=== PATIENT | female | born 1945 | race Caucasian/White ===

== ENCOUNTER 2018-09-05 21:11 | Emergency (ER) | payer OTHER ==
[~2018-09-05] VITALS: Ht 165.1 cm; Wt 68.0 kg
[2018-09-05 21:20] VITALS: BP_SYST 91
--- NOTE | 2018-09-05 21:41 | NUR ---
Patient to ER bed 06 to gown for evaluation. Side rails up.
--- NOTE | 2018-09-05 21:42 | NUR ---
ER Dr. Oseguera at bedside examining patient.
[2018-09-05] MEDS ORDERED: NACL 0.9% 1,000 ML IV ONE (21:43)
--- NOTE | 2018-09-05 21:43 | NUR ---
Pts bp is 85/37. ER MD Dr. Oseguera made aware. Started on IVF bolus.
--- NOTE | 2018-09-05 21:50 | NUR ---
Pt came into the ED by EMS for hx of of breast cancer after she lost consciousness while going to the bathroom before she came into the ED. [facility] because [facility] saw that she lost her balance. Pt is a & O x 4 and denies any other complaints. States she feels fine. She recalls that she felt dizzy when she lost consciousness. Her last treatment of chemo was on 08/29. Denies n/v/d or fever. No other complaints/ injuries noted. Will cont. to monitor.
--- NOTE | 2018-09-05 22:00 | NUR ---
Pt resting comfortably in bed.
[2018-09-05 22:23] LABS: HEMATOCRIT 31.8 % (36-48); HEMOGLOBIN 10.1 g/dL (12.0-16.0); MEAN CORPUSCULAR HEMOGLOBIN 28 pg (27-31); MEAN CORPUSCULAR HGB CONC 32 % (32-36); MEAN CORPUSCULAR VOLUME 87 fL (79.0-98.0); PLATELET COUNT (AUTO) 105 K/uL (130-430); RED BLOOD CELL COUNT(AUTO) 3.67 MIL/uL (4.2-6.2); RED CELL DISTRIBUTION WIDTH 14.9 % (9.0-15.0)
[2018-09-05 22:34] LABS: ANION GAP 10 (5-15); CALCIUM 7.4 mg/dL (8.4-11.0); CHLORIDE 103 mmol/L (98-107); CREATININE 1.44 mg/dL (0.55-1.30); GLUCOSE 124 mg/dL (70-99); POTASSIUM 4.1 mmol/L (3.5-5.1); SODIUM SERUM 137 mmol/L (136-145); UREA NITROGEN, BLOOD 19 mg/dL (8-21)
[2018-09-05 22:39] LABS: INR 1.6 (0.8-1.2)
[2018-09-05 22:40] LABS: ALANINE AMINOTRANSFERASE 15 U/L (12-78); ALBUMIN 2.9 g/dL (3.4-4.8); AMYLASE 32 U/L (0-100); ASPARTATE AMINOTRANSFERASE 18 U/L (10-37); LIPASE 77 U/L (73-393); TOTAL BILIRUBIN 1.6 mg/dL (0.0-1.0)
[2018-09-05 22:41] LABS: PROTHROMBIN TIME 16.3 SECS (9.5-12.5)
[2018-09-05 22:45] LABS: WHITE BLOOD COUNT (AUTO) 0.6 K/uL (4.8-10.8)
--- NOTE | 2018-09-05 23:00 | NUR ---
Pt resting comfortably in bed. no acute distress
[2018-09-05 23:15] LABS: BAND % (MANUAL) 2 % (0-6)
[2018-09-05 23:16] LABS: ATYPICAL LYMPHOCYTES % 5 % (0-0); BASOPHILS % (MANUAL) 0 % (0-2); EOSINOPHILS % (MANUAL) 0 % (0-7); LYMPHOCYTES % (MANUAL) 20 % (20-46); MONOCYTES % (MANUAL) 69 % (0-11)
[2018-09-05] MEDS ORDERED: FLEC50TA2 PO (23:29)
[2018-09-05] MEDS ORDERED: ATEN50TA PO (23:29)
[2018-09-05] MEDS ORDERED: DABI150C PO (23:29)
[2018-09-05] MEDS ORDERED: CHOL2000 PO (23:29)
[2018-09-05] MEDS ORDERED: NACL 0.9% 2,000 ML IV ONE (23:45)
--- NOTE | 2018-09-06 00:26 | NUR ---
Spoke with JIGAR Hopson from [place] and updated her with vital signs.
[2018-09-06 00:30] LABS: BILIRUBIN,URINE NEGATIVE (NEGATIVE); BLOOD, URINE 3+ (NEGATIVE); CLARITY/URINE CLEAR (CLEAR); COLOR,URINE YELLOW (YELLOW); GLUCOSE,URINE NEGATIVE (NEGATIVE); KETONES,URINE 1+ (NEGATIVE); LEUKOCYTE ESTERASE ,URINE NEGATIVE (NEGATIVE); NITRITE, URINE NEGATIVE (NEGATIVE); PROTEIN URINE NEGATIVE (NEGATIVE); UROBILINOGEN,URINE 0.2 (0.2-1.0)
--- NOTE | 2018-09-06 01:00 | NUR ---
Pt ambulated to the bathroom with steady gait.
[2018-09-06 01:06] LABS: BACTERIA,URINE FEW /HPF (None Seen); RBC,URINE 20-50 /HPF (0-3); WBC,URINE 0-3 /HPF (0-3)
--- NOTE | 2018-09-06 02:00 | NUR ---
Pt resting comfortably in bed.
--- NOTE | 2018-09-06 03:00 | NUR ---
Pt resting comfortably in bed. No acute distress.
--- NOTE | 2018-09-06 04:00 | NUR ---
Patient to be transferred to [facility]. Is being transferred due to higher level of care. Receiving facility has accepting physician and available space. ER physician has signed transfer form. Patient or responsible alliance party has agreed to transfer and signed form. Patient belongings inventoried and will be sent with patient. Copy of nursing notes, lab reports, EKG, Physicians Orders and X-rays to be sent with patient. Report called to [facility] at receiving facility. Receiving physician is Dr. Conor Barnhart. [facility] service has been called for transfer. ETA is [id number].
[2018-09-06 04:36] VITALS: BP_SYST 110
--- NOTE | 2018-09-06 04:43 | NUR ---
Pt in stable, IV is patent and intact. VS stable.
== END 2018-09-06 04:42 | disposition short-term general hospital (02) ==
LOC: SED 21:11
DX: R55 Syncope and collapse (principal); D61.818 Other pancytopenia; I95.9 Hypotension, unspecified; C50.919 Malignant neoplasm of unspecified site of unspecified female breast; Z95.0 Presence of cardiac pacemaker; Z91.041 Radiographic dye allergy status; Z79.899 Other long term (current) drug therapy
CPT/HCPCS: 36415; 71045; 80053; 81000; 82150; 82550; 83605; 83690; 83880; 84484; 85007; 85027; 85610; 85730; 87040; 93005; 96360; 96361; 99285; J7030

== ENCOUNTER 2021-05-16 17:20 | Emergency (ER) | payer MEDICARE, OTHER ==
[~2021-05-16] VITALS: Ht 165.1 cm; Wt 72.6 kg
[~2021-05-16 17:20] MED LIST: ATEN50TA PO; CHOL2000 PO; DABI150C PO; FLEC50TA2 PO
[2021-05-16 18:07] VITALS: BP_SYST 141
[2021-05-16 18:14] LABS: BASOPHILS % (AUTO) 0.4 % (0.0-2.0); EOSINOPHILS # (AUTO) 0.1 K/uL (0.0-0.4); EOSINOPHILS % (AUTO) 1.3 % (0.0-4.0); HEMATOCRIT 38.2 % (36-48); HEMOGLOBIN 12.5 g/dL (12.0-16.0); LYMPHOCYTES # (AUTO) 0.6 K/uL (1.0-5.5); LYMPHOCYTES % (AUTO) 5.6 % (20.5-51.5); MEAN CORPUSCULAR HEMOGLOBIN 29 pg (27-31); MEAN CORPUSCULAR HGB CONC 33 % (32-36); MEAN CORPUSCULAR VOLUME 87 fL (79.0-98.0); MONOCYTES # (AUTO) 0.7 K/uL (0.0-1.0); MONOCYTES % (AUTO) 6.7 % (1.7-9.3); NEUTROPHILS # (AUTO) 8.6 K/uL (1.8-7.7); PLATELET COUNT (AUTO) 159 K/uL (130-430); RED BLOOD CELL COUNT(AUTO) 4.39 MIL/uL (4.2-6.2); RED CELL DISTRIBUTION WIDTH 14.6 % (9.0-15.0); WHITE BLOOD COUNT (AUTO) 10.1 K/uL (4.8-10.8)
[2021-05-16 18:20] LABS: ANION GAP 11 (5-15); CALCIUM 9.2 mg/dL (8.4-11.0); CHLORIDE 105 mmol/L (98-107); CREATININE 1.53 mg/dL (0.55-1.30); GLUCOSE 119 mg/dL (70-99); POTASSIUM 4.2 mmol/L (3.5-5.1); SODIUM SERUM 141 mmol/L (136-145); UREA NITROGEN, BLOOD 19 mg/dL (8-21)
[2021-05-16 18:22] LABS: INR 1.4 (0.8-1.2); PROTHROMBIN TIME 14.6 SECS (9.5-12.5)
[2021-05-16 18:33] LABS: ALANINE AMINOTRANSFERASE 14 U/L (12-78); ASPARTATE AMINOTRANSFERASE 19 U/L (10-37); BILIRUBIN,DIRECT 0.3 mg/dL (0.0-0.3); LIPASE 210 U/L (73-393); TOTAL BILIRUBIN 0.7 mg/dL (0.0-1.0)
--- NOTE | 2021-05-16 18:40 | NUR ---
Patient to ER bed 5 to gown for evaluation. Side rails up.
--- NOTE | 2021-05-16 18:45 | NUR ---
JASON Becerra at bedside examining patient.
--- NOTE | 2021-05-16 18:50 | NUR ---
PT ARRIVES FROM HOME W/ A 2 DAY HX OF CONSTIPATION. PT DENIES ANY ABD PAIN, N/V, DIARRHEA
--- NOTE | 2021-05-16 19:11 | NUR ---
PT WAS ATTEMPTING TO GIVE A URINE SPECIMEN WHEN SHE HAD A BM.
--- NOTE | 2021-05-16 19:15 | NUR ---
CARE ENDORSED TO DARREN KIMBALL
[2021-05-16] MEDS ORDERED: POLY17PO4 PO (19:31)
[2021-05-16 20:00] VITALS: BP_SYST 138
--- NOTE | 2021-05-16 20:00 | NUR ---
Patient given written and verbal discharge instructions and verbalizes understanding. ER MD discussed with patient the results and treatment provided. Patient in stable condition. ID arm band removed. Rx of Miralax given. Patient educated on pain management and to follow up with PMD. Pain Scale 0/10 Opportunity for questions provided and answered. Medication side effect fact sheet provided.
== END 2021-05-16 20:00 | disposition home or self-care (01) ==
LOC: SED 17:20
DX: K59.00 Constipation, unspecified (principal); Z88.8 Allergy status to other drugs, medicaments and biological substances; Z79.899 Other long term (current) drug therapy
CPT/HCPCS: 36415; 76376; 80048; 80076; 83690; 83880; 84484; 85025; 85610-TC; 99284

== ENCOUNTER 2021-07-02 02:50 | Emergency (ER) | payer MEDICARE ==
[~2021-07-02] VITALS: Ht 162.6 cm; Wt 77.1 kg
[~2021-07-02 02:50] MED LIST changes: +POLY17PO4 PO
--- NOTE | 2021-07-02 03:00 | NUR ---
Patient to ER bed 7 to gown for evaluation. Side rails up. Report given to Victoria KIMBALL.
[2021-07-02 03:01] VITALS: BP_SYST 149
--- NOTE | 2021-07-02 03:01 | NUR ---
ER at bedside examining patient.
--- NOTE | 2021-07-02 03:10 | NUR ---
PATIENT AAOX4 BIB FAMILY C/O CONSTIPATION X3 DAYS. PER PATIENT SHE HAS HISTORY OF CONSTIPATION AND TAKES MEDICATION FOR IT. PT STATED SHE ONLY TAKES IT WHEN NEEDED AND HASNT BEEN TAKING THE MEDICATION FOR CONSTIPATION LATELY. VSS. DENIES ANY BLOOD IN STOOL.
[2021-07-02] MEDS ORDERED: MAGNESIUM CITRATE 300 ML ORAL SOLUTION PO ONE (03:15)
[2021-07-02] MEDS ORDERED: MAGNESIUM CITRATE 300 ML ORAL SOLUTION ONE (03:16)
--- NOTE | 2021-07-02 04:20 | NUR ---
PT AMBULATED TO BEDSIDE COMMODE AND HAD A SMALL SOFT BOWEL MOVEMENT. PT STATED SHE HAS HEMMROIDS AND STILL FEELS IF SHE IS CONSTIPATED.
[2021-07-02 04:25] VITALS: BP_SYST 149
--- NOTE | 2021-07-02 04:25 | NUR ---
Patient given written and verbal discharge instructions and verbalizes understanding. DR. VAIBHAV GOMEZ MD discussed with patient the results and treatment provided. Patient in stable condition. ID arm band removed. Patient educated on pain management and to follow up with PMD. Pain Scale 0/10. Opportunity for questions provided and answered. Medication side effect fact sheet provided.
== END 2021-07-02 04:25 | disposition home or self-care (01) ==
LOC: SED 02:50
DX: K59.00 Constipation, unspecified (principal); Z88.8 Allergy status to other drugs, medicaments and biological substances; Z79.899 Other long term (current) drug therapy
CPT/HCPCS: 99282

== ENCOUNTER 2023-01-08 17:22 | Emergency (ER) | payer MEDICARE ==
[~2023-01-08 17:22] MED LIST changes: +DOCU-144 PO; +FLEETMO RC; +LACT10PA5 PO; +POLY119P2 PO
[2023-01-08 18:02] VITALS: BP_SYST 118
[2023-01-08] MEDS ORDERED: METOCLOPRAMIDE HCL 10 MG/2 ML VIAL IM ONE (19:15)
[2023-01-08] MEDS ORDERED: SODIUM PHOSPHATE,MONO-DIBASIC 133 ML ENEMA RC ONE (19:15)
[2023-01-08] MEDS ORDERED: MAGN296S8 PO (21:03)
[2023-01-08 21:12] VITALS: BP_SYST 118
[2023-01-08] MEDS ORDERED: FLUMAZENIL 0.1 MG/ML IVP ONE (22:03)
== END 2023-01-08 21:10 | disposition home or self-care (01) ==
LOC: SED 17:22
DX: K59.00 Constipation, unspecified (principal); Z91.041 Radiographic dye allergy status; Z79.899 Other long term (current) drug therapy
CPT/HCPCS: 99283; 74018; J3490; J2765

== ENCOUNTER 2023-02-02 18:36 | Emergency (ER) | payer MEDICARE ==
[~2023-02-02] VITALS: Ht 165.1 cm; Wt 68.0 kg
[~2023-02-02 18:36] MED LIST changes: +MAGN296S8 PO
[2023-02-02 18:45] VITALS: BP_SYST 137
[2023-02-02] MEDS ORDERED: SODIUM PHOSPHATE,MONO-DIBASIC 133 ML ENEMA RC ONE (19:45)
[2023-02-02 19:56] LABS: BASOPHILS # (AUTO) 0.1 K/uL (0.0-0.2); BASOPHILS % (AUTO) 0.7 % (0.0-2.0); EOSINOPHILS % (AUTO) 0.4 % (0.0-4.0); HEMATOCRIT 37.3 % (36-48); HEMOGLOBIN 12.3 g/dL (12.0-16.0); LYMPHOCYTES # (AUTO) 0.5 K/uL (1.0-5.5); LYMPHOCYTES % (AUTO) 3.8 % (20.5-51.5); MEAN CORPUSCULAR HEMOGLOBIN 29 pg (27-31); MEAN CORPUSCULAR HGB CONC 33 % (32-36); MEAN CORPUSCULAR VOLUME 88 fL (79.0-98.0); MONOCYTES # (AUTO) 0.7 K/uL (0.0-1.0); MONOCYTES % (AUTO) 5.6 % (1.7-9.3); NEUTROPHILS # (AUTO) 10.7 K/uL (1.8-7.7); NEUTROPHILS % (AUTO) 89.5 % (40.0-70.0); PLATELET COUNT (AUTO) 160 K/uL (130-430); RED BLOOD CELL COUNT(AUTO) 4.24 MIL/uL (4.2-6.2); RED CELL DISTRIBUTION WIDTH 14.3 % (9.0-15.0)
[2023-02-02 20:06] LABS: ALANINE AMINOTRANSFERASE 14 U/L (12-78); ALBUMIN 3.5 g/dL (3.4-4.8); ANION GAP 9 (5-15); ASPARTATE AMINOTRANSFERASE 21 U/L (10-37); CALCIUM 8.5 mg/dL (8.4-11.0); CHLORIDE 106 mmol/L (98-107); CREATININE 1.77 mg/dL (0.55-1.30); GLUCOSE 119 mg/dL (70-99); LIPASE 207 U/L (73-393); TOTAL BILIRUBIN 0.6 mg/dL (0.0-1.0); UREA NITROGEN, BLOOD 26 mg/dL (8-21)
[2023-02-02] MEDS ORDERED: DOCU-144 PO (20:43)
[2023-02-02 21:00] VITALS: BP_SYST 129
== END 2023-02-02 21:00 | disposition home or self-care (01) ==
LOC: SED 18:36
DX: K59.00 Constipation, unspecified (principal); Z88.8 Allergy status to other drugs, medicaments and biological substances; Z79.899 Other long term (current) drug therapy
CPT/HCPCS: 36415; 76376; 80053; 83690; 85025; 99284

== ENCOUNTER 2023-03-25 08:50 | Emergency (ER) | payer MEDICARE ==
[~2023-03-25] VITALS: Ht 165.1 cm; Wt 65.8 kg
[2023-03-25 08:56] VITALS: BP_SYST 112; RESP 17; TEMP 96.8; O2SAT 98
[2023-03-25 09:38] LABS: BASOPHILS # (AUTO) 0.1 K/uL (0.0-0.2); BASOPHILS % (AUTO) 0.8 % (0.0-2.0); EOSINOPHILS # (AUTO) 0.1 K/uL (0.0-0.4); EOSINOPHILS % (AUTO) 1.3 % (0.0-4.0); HEMATOCRIT 39.8 % (36-48); HEMOGLOBIN 12.7 g/dL (12.0-16.0); LYMPHOCYTES # (AUTO) 0.6 K/uL (1.0-5.5); MEAN CORPUSCULAR HEMOGLOBIN 28 pg (27-31); MEAN CORPUSCULAR HGB CONC 32 % (32-36); MEAN CORPUSCULAR VOLUME 88 fL (79.0-98.0); MONOCYTES # (AUTO) 0.6 K/uL (0.0-1.0); MONOCYTES % (AUTO) 7.5 % (1.7-9.3); NEUTROPHILS # (AUTO) 6.4 K/uL (1.8-7.7); NEUTROPHILS % (AUTO) 82.4 % (40.0-70.0); PLATELET COUNT (AUTO) 165 K/uL (130-430); RED BLOOD CELL COUNT(AUTO) 4.54 MIL/uL (4.2-6.2); RED CELL DISTRIBUTION WIDTH 14.4 % (9.0-15.0); WHITE BLOOD COUNT (AUTO) 7.7 K/uL (4.8-10.8)
[2023-03-25 09:44] LABS: ANION GAP 15 (5-15); CALCIUM 8.8 mg/dL (8.4-11.0); CHLORIDE 107 mmol/L (98-107); CREATININE 1.44 mg/dL (0.55-1.30); GLUCOSE 130 mg/dL (74-106); UREA NITROGEN, BLOOD 24 mg/dL (8-21)
[2023-03-25 09:48] LABS: ALANINE AMINOTRANSFERASE 12 U/L (12-78); ALBUMIN 3.8 g/dL (3.4-4.8); AMYLASE 114 U/L (0-100); ASPARTATE AMINOTRANSFERASE 15 U/L (10-37); LIPASE 221 U/L (73-393); TOTAL BILIRUBIN 0.5 mg/dL (0.0-1.0)
[2023-03-25] MEDS ORDERED: GOLYTELY / COLYTE SOLUTION 4 LITERS PO ONE (10:30)
[2023-03-25] MEDS ORDERED: SODIUM PHOSPHATE,MONO-DIBASIC 133 ML ENEMA RC ONE (10:30)
[2023-03-25] MEDS ORDERED: FLEETMO RC (10:30)
[2023-03-25 11:00] VITALS: O2SAT 98
[2023-03-25] MEDS ORDERED: BACITRACIN 1 GM OINT TP ONE (11:01)
[2023-03-25 11:57] VITALS: BP_SYST 127; PULSE 88; RESP 16; TEMP 97.5
== END 2023-03-25 11:53 | disposition home or self-care (01) ==
LOC: SED 08:50
DX: K56.41 Fecal impaction (principal); R10.9 Unspecified abdominal pain; Z91.041 Radiographic dye allergy status; Z85.3 Personal history of malignant neoplasm of breast; Z79.899 Other long term (current) drug therapy
CPT/HCPCS: 36415; 74018; 80053; 82150; 83605; 83690; 85025; 93005; 99285